=== PATIENT | male | born 1960 | race Two or more races ===

== ENCOUNTER 2018-02-22 05:48 | Emergency (ER) | payer SELFPAY ==
[2018-02-22] MEDS: METHOCARBAMOL 750 MG TAB PO (07:37)
[2018-02-22] MEDS: DEXAMETHASONE 10 MG/ML 1 ML INJ IM (07:38)
[2018-02-22] MEDS: KETOROLAC 30 MG INJ IM (07:39)
== END 2018-02-22 08:45 | disposition home or self-care (01) ==
LOC: FTE 05:48
DX: M54.5 Low back pain (principal)
CPT/HCPCS: 96372; 99284-25

== ENCOUNTER 2018-03-04 12:22 | Emergency (ER) | payer OTHER ==
[2018-03-04] MEDS: HYDROCODONE/APAP (5/325) TAB PO (13:24)
== END 2018-03-04 14:02 | disposition home or self-care (01) ==
LOC: FTE 12:22
DX: M54.41 Lumbago with sciatica, right side (principal)
CPT/HCPCS: 72100; 99283-25